=== PATIENT | female | born 1975 | race Caucasian/White ===

== ENCOUNTER 2021-03-14 17:03 | Emergency (ER) | payer OTHER, SELFPAY ==
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
[2021-03-14 17:20] VITALS: BP 140/70; PULSE 70; O2SAT 98; BMI 23.6
[2021-03-14 17:55] VITALS: BP 121/86; PULSE 68; O2SAT 99
[2021-03-14 18:56] LABS: MANUAL DIFF FLAG NO
[2021-03-14 18:57] LABS: Appearance Urine HAZY; Basophils Percent Auto 0.4 % (0-2); Color Urine YELLOW; Eosinophils Absolute Auto 0.4 X10*3/uL (0.0-0.4); Eosinophils Percent Auto 3.2 % (0-4); Glucose Urine UA NEG (NEG); Hematocrit 43.7 % (37.0-47.0); Hemoglobin 14.3 g/dl (12.0-16.0); Imm Gran Abs Auto 0.04 X10*3/uL (0.00-0.03); Imm Gran Pct Auto 0.4 % (0.0-0.4); Leukocyte Esterase Urine NEG (NEG); Lymphocytes Absolute Auto 3.3 X10*3/uL (1.2-4.9); Lymphocytes Percent Auto 29.9 % (20-40); Mean Corpuscular HGB Conc 32.7 g/dl (31.0-35.0); Mean Corpuscular Hemoglobin 28.9 pg (27.0-33.0); Mean Corpuscular Volume 88.5 fL (80.0-98.0); Mean Platelet Volume 10.6 fL (9.4-12.3); Monocytes Absolute Auto 0.7 X10*3/uL (0.1-1.2); Monocytes Percent Auto 6.3 % (2-11); Neutrophils Absolute Auto 6.5 x10*3/uL (2.0-8.3); Neutrophils Percent Auto 59.8 % (45-73); Nitrite Urine NEG (NEG); Platelet Count 257 X10*3/uL (160-400); Red Blood Count 4.94 X10*6/uL (4.20-5.50); Red Cell Distribution Width 13.6 % (11.0-16.0); UACC Culture Trigger NO; Urine Blood TRACE (NEG); Urine Ketones NEG (NEG); Urine Protein NEG (NEG-TRACE); White Blood Count 10.9 X10*3/uL (4.8-10.8)
[2021-03-14 19:02] LABS: Mucus Urine 1+ /LPF; Squamous Epithelial Cell Urine 2+ /LPF; Tyrosine Crystal Urine TRACE /LPF
[2021-03-14 19:03] LABS: Bacteria Urine TRACE /LPF; RBC Urine 0-2 /HPF (0); WBC Urine 0-2 /HPF (0-4)
[2021-03-14 19:16] LABS: Ethanol < 10 mg/dL
[2021-03-14 19:18] LABS: COVID-19 Test Negative (Negative)
[2021-03-14 19:19] LABS: Alanine Aminotransferase 23 U/L (0-31); Albumin Level 4.1 g/dL (3.5-5.0); Alkaline Phosphatase 79 U/L (39-117); Anion Gap 11 (12-20); Aspartate Amino Transferase 17 U/L (5-31); Bilirubin Total 0.3 mg/dL (0.0-1.0); Blood Urea Nitrogen 9 mg/dL (9-16); Calcium 9.6 mg/dL (8.4-10.2); Carbon Dioxide 28 mmol/L (22-29); Chloride 105 mmol/L (96-108); Creatinine Clr Calc Pharmacy 84.2; Estimated Glomerular Filt Rate > 60; Glucose Random 79 mg/dL (60-115); Sodium 140 mmol/L (135-145); Total Protein 6.4 g/dL (6.5-8.0)
[2021-03-14 19:31] LABS: Amphetamine Screen Urine Not Detected (Not Detect); Barbiturates, Urine Not Detected (Not Detect); Benzodiazepines Screen Urine Not Detected (Not Detect); Cannabinoid Screen Urine Not Detected (Not Detect); Cocaine Screen Urine POSITIVE (Not Detect); Fentanyl, urine POSITIVE (Not Detect); Opiate Screen Urine Not Detected (Not Detect); Phencyclidine Screen Urine Not Detected (Not Detect)
[2021-03-14 19:46] VITALS: PULSE 56; O2SAT 95
[2021-03-14 20:18] VITALS: BP 121/77; PULSE 70; RESP 20; TEMP 36.9; O2SAT 96
--- NOTE | 2021-03-14 20:31 | PC.NURSE ---
pt escorted to the behavioral health POD, in her bed while cleaning it staff found 5 tiny pill like containers containing an unknown substance. GIOVANI Beckford made aware. Security made aware and given the containers
--- NOTE | 2021-03-14 20:34 | PC.NURSE ---
pt arrived to the pod very drowsy and wabbly when standing, pt taken to the bathroom with jaya and myself while security stood outside the bathroom door in the pod. pt was checked for any further substances due to staff found crushed pills in her bed in the main 6 burrows. pt is in pod clothing, a small white substance noted to her rectal area, pt denies drugs on her person. during this note security and the provider came to the pt room [facility] and had a conversation with provider, security and myself and pt did states that she had 6 blue containers with crack inside. pt is very upset punched the wall, crying and wants to go home. pt is being monitored for her safety, vitals and neuro status, pt repeated over and over she is not depressed but wants to due to she doesnt like the people in the world.
--- NOTE | 2021-03-14 21:11 | PC.NURSE ---
pt mom Chato called and stated that she received a call from the pt and the pt was crying hard to understand but wants her dogs to be cared for tonight. pt made aware and pt stated that no information is to go to her mom. no hipa violation made and pt will call her mom back when she is ready.
--- NOTE | 2021-03-14 21:28 | PC.NURSE ---
late entry, during the pt mash filter cloth changer pt braclets and 2 rings removed by the pt and placed in a plastic bag and placed in her locked locker for pt safety. pt is still crying to go home.
--- NOTE | 2021-03-14 21:38 | PC.NURSE ---
added to belonging checklist 2 rings, 5 braclets and 1 necklace used as a braclet removed and placed in locker 7 with her other belongins.. this was done with security present.
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
[2021-03-14 22:00] VITALS: RESP 20
--- NOTE | 2021-03-14 22:05 | PC.NURSE ---
saranya contact numbers [employer] [phone] cell [phone] work number [phone]
[2021-03-14] MEDS: LORazepam 1 MG TABLET PO (22:12)
--- NOTE | 2021-03-14 22:14 | PC.NURSE ---
pt is back in bed laying down, tearful, treated with ativan po. pt is starting to settle down and the crying has lessened.
--- NOTE | 2021-03-14 22:24 | PC.NURSE ---
late entry when security was present earlier the room was gone thru with security for pt safety.
--- NOTE | 2021-03-14 22:32 | PC.NURSE ---
care team present and attempted to talk with pt about her substance abuse issues but pt was sleepin. ,
--- NOTE | 2021-03-14 22:35 | HO.SUDE ---
CARE team attempted to meet with pt to complete SUDE. She was sleeping and did not rouse to verbal stimuli. Unable to be assessed at this time.
--- NOTE | 2021-03-14 23:40 | PC.NURSE ---
Narcan 4 mg scheduled for 1804 order was not documented, not clear from the report whether it was given and not documented or not given, patient is currently sleeping, no distress observed/reported.
[2021-03-15 00:53] VITALS: BP 97/56; PULSE 51; RESP 17; TEMP 36.9; O2SAT 97
--- NOTE | 2021-03-15 05:35 | PC.NURSE ---
Patient slept through the night, no distress observed/reported, behavior calm, quiet, and appropriate, mood depressed affect flat at this time, med rec completed pending providers approval, patient was screened by PACO, disposition is section 12 inpatient bed search, VSS, will continue to monitor.
[2021-03-15 10:01] VITALS: BP 112/73; PULSE 61; RESP 16; TEMP 36.6; O2SAT 97
[2021-03-15] MEDS: LORazepam 1 MG TABLET PO (10:38)
--- NOTE | 2021-03-15 13:00 | PC.NURSE ---
report given to Jessica Farias at [facility]. Pt transported to [facility]. Pt aware of plan. Pt alert and oriented, vss. denies pain. Lunch given prior to leaving ED POD. Pt's mother present on discharge.
== END 2021-03-15 13:00 | disposition home or self-care (01) ==
PROVIDERS: Physician Assistant; Emergency Provider Internal Medicine; PCP Internal Medicine
DX: T40.1X1A Poisoning by heroin, accidental (unintentional), initial encounter (principal); Y92.9 Unspecified place or not applicable; F32.A Depression, unspecified; R45.851 Suicidal ideations; Z20.822 Contact with and (suspected) exposure to COVID-19
CPT/HCPCS: 36415; 80053; 80307; 81001; 82077; 85025; 87635; 99285

== ENCOUNTER → 2021-04-28 13:58 | Outpatient (BNVA) | payer OTHER, SELFPAY | PROVIDERS: PCP Internal Medicine; Visit Provider Nurse Practitioner Family | DX: M47.816 Spondylosis without myelopathy or radiculopathy, lumbar region (principal); M54.6 Pain in thoracic spine; M79.18 Myalgia, other site | CPT/HCPCS: 99202 ==

== ENCOUNTER 2022-01-28 11:48 | Outpatient (REF) | payer OTHER, SELFPAY ==
--- NOTE | ~2022-01-28 | XR_ITS ---
EXAMINATION: XR THORACOLUMBAR SPINE CLINICAL INFORMATION: Pain in thoracic spine COMPARISON: Same-day radiographs of the lumbar spine. TECHNIQUE: 3 views of the thoracic spine FINDINGS: There is mild curve of the thoracic spine, convex left. No fracture or subluxation. No intrinsic bony abnormality. There is multilevel narrowing of the disc spaces in the mid to lower thoracic spine with small anterior marginal osteophytes. The surrounding prevertebral soft tissues are within normal limits. XR/XR thoracic spine 2V IMPRESSION: 1. Mild curve of the thoracic spine, convex left. 2. Mild degenerative changes.
--- NOTE | ~2022-01-28 | XR_ITS ---
EXAMINATION: XR LUMBOSACRAL SPINE CLINICAL INFORMATION: Spondylosis without myelopathy radiculopathy COMPARISON: Same-day thoracic spine radiographs TECHNIQUE: Three views of the lumbosacral spine. FINDINGS: There are 5 nonrib-bearing lumbar-type vertebral bodies. The height of the vertebral bodies is well-maintained. There is no disc space narrowing. There is no spondylolisthesis or spondylolysis. There is moderate degenerative facet joint disease at L5-S1. The sacroiliac joints are symmetric. XR/XR lumbar spine 2-3V IMPRESSION: Moderate degenerative facet joint disease L5-S1.
== END 2022-01-28 11:49 | disposition home or self-care (01) ==
LOC: HO.XRAY 11:48
PROVIDERS: Visit Provider Nurse Practitioner Family
DX: M47.816 Spondylosis without myelopathy or radiculopathy, lumbar region (principal); M54.6 Pain in thoracic spine
CPT/HCPCS: 72070; 72100

== ENCOUNTER 2022-03-01 16:39 | Outpatient (REF) | payer OTHER, SELFPAY ==
--- NOTE | ~2022-03-01 | MR_ITS ---
EXAMINATION: MR THORACIC SPINE WITHOUT CONTRAST CLINICAL INFORMATION: Pain in the thoracic spine. COMPARISON: Thoracic spine radiographs from 01/28/2022. TECHNIQUE: MRI of the thoracic spine was obtained using routine sequences without contrast. FINDINGS: Mildly motion degraded exam. Limited evaluation of the cervical spine on nondiagnostic teaching supervisor imaging is notable for mild to moderate multilevel degenerative spondyloarthropathy. No demonstrated cervical spinal canal stenosis. Normal anatomic alignment of the thoracic spine. Partially decreased marrow signal throughout. Scattered lipid rich hemangiomas within the vertebral bodies from T6-L1. No suspicious marrow edema. The vertebral body heights are maintained. Mild degenerative disc disease from T3-T11. No demonstrated spinal cord signal abnormalities. The conus medullaris terminates at the level of L1-L2. No significant abnormalities of the paraspinal musculature. Limited evaluation of the intrathoracic structures without significant abnormalities. The descending thoracic aorta is of normal contour and caliber. AXIAL SPINAL LEVELS: Mild multilevel posterior disc herniations, most notably at T2-T3, T4-T5, and from T9-L1. There is mild multilevel facet joint arthropathy. There is no neural foraminal stenosis. There is no spinal canal stenosis. 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 No overt thoracic spinal canal stenosis or nerve root compression. There appears to be partially decreased marrow signal throughout. This is a nonspecific appearance that could be seen in the setting of a variety of metabolic derangement and/or lymphoproliferative/hematopoietic disorders (including anemia).
== END 2022-03-01 16:40 | disposition home or self-care (01) ==
LOC: HO.MRI 16:39
PROVIDERS: Visit Provider Nurse Practitioner Family
DX: M54.6 Pain in thoracic spine (principal); M41.9 Scoliosis, unspecified; M47.816 Spondylosis without myelopathy or radiculopathy, lumbar region
CPT/HCPCS: 72146

== ENCOUNTER → 2022-05-05 14:54 | Outpatient (BNVA) | payer OTHER, SELFPAY | PROVIDERS: PCP Internal Medicine; Visit Provider Nurse Practitioner Family | DX: M41.9 Scoliosis, unspecified (principal); M79.18 Myalgia, other site; M54.6 Pain in thoracic spine; M47.814 Spondylosis without myelopathy or radiculopathy, thoracic region | CPT/HCPCS: 99212 ==

== ENCOUNTER 2022-06-22 06:03 | Outpatient (REF) | payer OTHER, SELFPAY | END 2022-06-22 06:04 | disposition home or self-care (01) | LOC: CF 06:03 | PROVIDERS: Visit Provider Internal Medicine | DX: Z13.89 Encounter for screening for other disorder (principal) | CPT/HCPCS: J2795; Q9965 ==

== ENCOUNTER 2022-12-18 11:58 | Emergency (ER) | payer OTHER, SELFPAY ==
[2022-12-18 12:11] VITALS: BP 116/68; PULSE 63; RESP 16; TEMP 36.9; O2SAT 94; BMI 27.6
--- NOTE | 2022-12-18 12:34 | ED_ITS ---
HPI - General Adult General Chief complaint: General Medical Stated complaint: Sore throat, N[facility]V [facility] EMS Time Seen by Provider: 12/18/22 12:15 Source: patient, EMS and RN notes reviewed (From [facility]) Mode of arrival: EMS Limitations: no limitations History of Present Illness HPI narrative: patient is a 47-year-old female who presents to emergency department via EMS coming from [facility]. She has been experiencing a sore throat for the past week and also endorses bilateral ear pain and nausea. Today she had 2 episodes of vomiting. Denies fevers, chills, neck pain, headache, chest pain, shortness of breath, abdominal pain, genitourinary symptoms, possibility of . Related Data Home Medications Medication Instructions Recorded Confirmed escitalopram oxalate 5 mg tablet 1 tab PO DAILY 03/15/21 04/28/21 gabapentin 600 mg tablet 1 tab PO TID 03/15/21 04/28/21 methadone 10 mg/mL oral concentrate 5 mg PO DAILY 04/28/21 04/28/21 Previous Rx's Medication Instructions Recorded penicillin V potassium 500 mg 500 mg PO BID #20 tabs 12/18/22 tablet Allergies Allergy/AdvReac Type Severity Reaction Status Date / Time No Known Allergies Allergy Verified 05/05/22 15:00 Review of Systems Review of Systems: Yes all other systems are reviewed and are negative PMFSH Past Medical History Attestation statement: The following information was validated with the patient. Source: old records reviewed Social History Social History (Updated 05/05/22 @ 15:10 by Veronica Garnett) Alcohol intake: never Smoked in Last 30 Days: Yes Use of substances other than those prescribed or required for medical reasons: Yes Substance Use Type: Crack/Cocaine Substance Use Frequency: Occasionally Last Used Substance: Weeks (ago) Advance Directives: No Advance Directives Information Provided: No Patient : No Physical Exam ED Vital Signs: Vital Signs - 24 hr 12/18/22 12:11 Temperature 98.5 F Pulse Rate 63 Respiratory Rate 16 Blood Pressure 116/68 Pulse Oximetry 94 Oxygen Delivery Method Room Air BMI result Body Mass Index 27.6 Appearance: Alert.?Oriented to person, place and time. No acute distress.?Normal affect. Eyes: Pupils equal, round and reactive to light.? ENT: Pharynx Erythematous without tonsillar hypertrophy, white exudates present bilaterally. Uvula midline. No trismus. No drooling.?? TM normal bilaterally. Neck: Normal inspection.? Neck supple.?? No cervical lymphadenopathy CVS: Heart sounds normal. Normal heart rate and rhythm.? Pulses normal.?? Respiratory: No respiratory distress.? Lung sounds clear to auscultation bilaterally?? Abdomen: Soft and non-tender. Normoactive bowel sounds. Skin: Skin warm and dry.? Normal skin color.? Extremities: No lower extremity edema.? Neuro: Moves all extremities spontaneously. Sensation intact bilaterally. Ambulates with normal steady gait. Course Reevaluation(s) Reevaluation #1: Strep a positive, most likely etiology for symptoms. Urinalysis with concern for urogenital contamination, she is without symptoms, I do not suspect UTI at this time. COVID- 19 and influenza testing are negative. Stable for dis charge back to [facility] Medications Administered Discontinued Medications Generic Name Dose Route Start Last Admin Trade Name Freq PRN Reason Stop Dose Admin Ibuprofen 600 mg 12/18/22 12:31 12/18/22 12:36 Ibuprofen 600 Mg Tablet PO 12/18/22 12:32 600 mg ONCE ONE Administration Ondansetron HCl 4 mg 12/18/22 12:31 12/18/22 12:37 Ondansetron Odt 4 Mg Tab.Rapdis TRANSLINGU 12/18/22 12:32 4 mg ONCE ONE Administration Medical Decision Making Medical Decision Making [facility] Narrative: patient is a 47-year-old female who presents emergency department via EMS for evaluation of upper respiratory symptoms. Physical examination is consistent with pharyngitis, likely bacterial in nature. No evidence of acute otitis media. no evidence of peritonsillar or retropharyngeal abscess plan to obtain testing for strep a, influenza/COVID - 19. Will trial Zofran for nausea and ibuprofen for discomfort. Abdominal examination is benign, I have a low suspicion for hepatic/biliary etiology, pancreatitis, bowel obstruction, diverticulitis, appendicitis, urinary tract infection, pyelonephritis. Suspect symptoms likely to be secondary to strep infection Differential Diagnosis Differential Diagnoses: The differential diagnosis associated with the presentation includes ( as noted above) Lab Data [facility] Lab Attestation statement: I reviewed the patient's lab results. ( see course narrative for further detail) Labs: Lab Results 09/17/23 09/17/23 Range/Units 13:36 13:45 Urine Color Yellow Urine Appearance Cloudy Urine pH 6.0 (5.0-9.0) Ur Specific [place] 1.015 (1.005-1.025) Urine Protein Negative (Neg-Trace) mg/dL Urine Glucose (UA) Negative (Negative) mg/dL Urine Ketones Negative (Negative) mg/dL Urine Blood Negative (Negative) Urine Nitrite Negative (Negative) Ur Leukocyte Esterase Large (3+) H (Negative) Urine RBC 0-2 (0-2) /HPF Urine WBC >50 H (0-5) /HPF Ur Squamous Epith Cells >20 (0-2) /HPF Urine Bacteria 4+ (None Seen) Hyaline Casts 3-5 (0-2) /LPF Urine Test NEGATIVE (NEGATIVE) Influenza Type A (PCR) NEGATIVE (Negative) Influenza Type B (PCR) NEGATIVE (Negative) RSV RNA Qual (PCR) NEGATIVE (Negative) SARS-CoV-2 RNA (RT-PCR) NEGATIVE (Negative) S. pyogenes GrpA PROMISE Positive A (Negative) Independent Historian Clinical information obtained from an independent historian. History obtained from or confirmed by: EMS ( as per H PI) External Record Review External record reviewed: Outpatient record Tests considered The following testing was considered but not selected: considered CBC, CMP, lipase, see narrative above, serum labs were deferred Prescription Management I considered prescription management with: Antibiotic Discharge Plan Discharge Clinical Impression: Acute streptococcal pharyngitis Patient Disposition: Xfer Psychiatric [facility] Transfer Details: Ynes Instructions: Strep Throat (ED) Prescriptions: New penicillin V potassium 500 mg tablet 500 mg PO BID Qty: 20 0RF No Action gabapentin 600 mg tablet 1 tab PO TID escitalopram oxalate 5 mg tablet 1 tab PO DAILY methadone 10 mg/mL concentrate 5 mg PO DAILY
--- OUTSIDE RECORDS SUMMARY | 2022-12-18 12:34 | XMS_ITS | Continuity of Care Document ---
Author Name Unknown Organization [facility] ter Address [address] [place] [id number] Care Team Providers Care Eligibility Specialist Name Role Phone Porfirio-Hernando MICHEL, Angi Primary Care Physicia n [place] [facility] [place]): [place] - 12/16/[address] [id number]- Discharge Disposition: Transfer to [facility] Attending Physician: Milena Lobo MD Admitting Physician: Vesta Alonso MD Referring Physician: Not on Staff, Referring MD Allergies, Adverse Reactions, Alerts No Known Medication Allergies Immunizations Given and Recorded Vaccine Date Status Refusal Reason tetanus/diphtheria/pertussis, acel(Tdap) 09/03/22 Given SARS-CoV-2 (COVID-19) Ad26 vaccine 09/23/20 Record ed diphtheria/tetanus/pertussis, acel(DTaP) 09/12/08 Recorded Medications albuterol CFC free 90 mcg/inh inhalation aerosol 180 mcg, 2, puffs, Inhalation, Every 4 hours, PRN, Refills 0, Maintenance, 06/21/21 10:00:00 EDT, Inhaler Start Date: 06/21/21 Status: Ordered FLUoxetine 40 mg oral capsule 1 capsule = 40 mg, By Mouth, Daily, # 30 capsule, 0 Refills, Maintenance, 12/08/22 17:11:00 EDT, Capsule, Partial fill upon patient request if the prescription is for a schedule II opioid drug. Start Date: 12/08/22 Status: Ordered gabapentin 300 mg oral capsule 600 mg, Capsule, By Mouth, 12/16/22 15:00:00 EDT Start Date: 12/16/22 Stop Date: 12/16/22 Status: Completed gabapentin 600 mg oral tablet 1 tablet = 600 mg, By Mouth, 3 times a day, # 270 tablet, 0 Refills, Maintenance, 12/08/22 17:11:00EDT, Tablet, Partial fill upon patient request if the prescription is for a schedule II opioid drug. Start Date: 12/08/22 Status: Ordered hydrOXYzine pamoate 50 mg oral capsule 1 capsule = 50 mg, By Mouth, 3 times a day, PRN as needed for anxiety, 0 Refills, Maintenance, 12/08/22 17:11:00 EDT, Partial fill upon patient request if the prescription is for a schedule II opioiddrug. Start Date: 12/08/22 Status: Ordered Melatonin 3 mg oral tablet 1 tablet = 3 mg, By Mouth, Daily at bedtime, PRN for insomnia, # 60 tablet, 0 Refills, Maintenance,12/08/22 17:11:00 EDT, Tablet, Partial fill upon patient request if the prescription is for a schedule II opioid drug. Start Date: 12/08/22 Status: Ordered Methadone = 125 mg, By Mouth, Daily, 0 Refills, Maintenance, 12/11/22 9:36:00 EDT, Tablet, Partial fill upon patient request if the prescription is for a schedule II opioid drug. Start Date: 12/11/22 Status: Ordered Nitrofurantoin Capsule 100 mg, 1, capsule, By Mouth, 2 times a day, Maintenance, Contraindicated when CrCL less than 30 mL/min, 12/16/22 9:13:00 EDT Start Date: 12/16/22 Stop Date: 12/17/22 Status: Ordered Problem List Condition Confirmation Course Effective Dates Status H ealt Status Informant Anxiety and depression Confirmed Active Polysubstance abuse Confirmed Active Results Orders for Microbiology Reports Name Date Throat Culture Grp A Strep (Culture Thro at Grp A Strep) 12/13/22 Urine Culture (URINE CULTURE) 12/11/22 Microbiology Reports TEST:Group A Strep Culture STATUS:Auth (Verified) BODY SITE: SOURCE:THROAT COLLECTED DATE/TIME:12/14/22 12:20 AM Group A Strep Culture SPECIMEN DESCRIPTION : THROAT SWAB SPECIAL REQUESTS : NONE CULTURE : NO GROUP A BETA HEMOLYTIC STREPTOCOCCI ISOLATED REPORT STATUS : FINAL 12/16/2022 TEST:Urine Culture STATUS:Auth (Verified) BODY SITE: SOURCE:URINE COLLECTED DATE/TIME:12/11/22 9:00 AM Urine Culture SPECIMEN DESCRIPTION : URINE SPECIAL REQUESTS : NONE CULTURE : >100,000 COL/ML ENTEROCOCCUS FAECALIS This isolate was identified using Maldi-TOF system These AST results were performed on the Vitek 2 ID and AST system REPORT STATUS : FINAL 12/14/2022 ORGANISM >100,000 COL/ML ENTEROCOCCUS FAECALIS This isolate was identified using Maldi-TOF system These AST results were performed on the Vitek 2 ID and AST system METHOD MIN. INHIB. CONC. (MCG/ML) AMPICILLIN SUSCEPTIBLE CIPROFLOXACIN SUSCEPTIBLE NITROFURANTOIN SUSCEPTIBLE LEVOFLOXACIN SUSCEPTIBLE VANCOMYCIN SUSCEPTIBLE GENTAMICIN SYNERGY SUSCEPTIBLE STREPTOMYCIN SYNERGY SUSCEPTIBLE TETRACYCLINE SUSCEPTIBLE Radiology Reports * Exam Date Time Procedure Performing Provider Status 12/08/22 11:28 AM Chest 2 Views Frontal and Lat Cliff Urrutia (Verified) Notes: (Chest 2 Views Frontal and Lat) Reason For Exam: Shortness of Breath, Fever;Other: RESULT: Chest 2 Views Frontal and Lat Chest 2 Views Frontal and Lat Reason: Other:; Shortness of Breath, Fever; Clinical Question(s): Pneumonia COMPARISON: 10/11/2020 FINDINGS: No acute cardiopulmonary process IMPRESSION: No acute abnormality. WSN: [id number] Ordering Physician: Stanley Jarvis Dictated By: Stanley Obrien MD Dictated Date/Time: 12/08/22 11:32 a Reviewed By: Stanley Obrien MD Signed By: Stanley Obrien MD Signed Date/Time: 12/08/22 11:32 am Transcribed By: COLIN Transcribed Date/Time: 12/08/22 11:31 am * Exam Date Time Procedure Performing Provider Status 12/08/22 7:[address] Head/Brain W/O Contrast Colette Pinto (Verified) Notes: (CT Head/Brain W/O Contrast) Reason For Exam: Trauma RESULT: CT Head/Brain W/O Contrast CT Head/Brain W/O Contrast INDICATION: Hx of Present Illness: patient was found on side of the road by bystander asleep. PD showed up and patient began to have 30 second episode of ? Tonic seizure was clenched nonresponsive. Postictal for ems, increased mentation throughout transport.; Reason: Trauma; Clinical Question(s): Hematoma; Order Comment: TECHNIQUE: Noncontrast head CT using axial technique and reconstructed in axial and coronal planes.Iterative reconstruction techniques are used to optimize dose and image quality. CTDIvol Head: 47.60 mGy, DLP Head: 773 mGy*cm. COMPARISON: 06/08/2014 FINDINGS: Computer Operator view findings, lines and tubes: None. BRAIN AND EXTRA-AXIAL SPACES: No parenchymal hemorrhage, midline shift, or mass effect. Abdalla-white matter differentiation is wellpreserved. No acute infarct. Ventricles, sulci, and basilar cisterns are normal. No white matter lesions. No subarachnoid hemorrhage. No subdural or epidural collection. CALVARIUM, SKULL BASE, AND SOFT TISSUES: No fractures or suspicious bony lesions. The paranasal sinuses and mastoid air cells are clear. Visualized orbits and globes are intact. The extracranial soft tissues are unremarkable. IMPRESSION: No acute intracranial pathology. WSN: [id number] Ordering Physician: Stanley Jarvis Dictated By: Corbin Hassan MD Dictated Date/Time: 12/08/22 7:58 am Reviewed By: Corbin Hassan MD Signed By: Corbin Hassan MD Signed Date/Time: 12/08/22 7:58 am Transcribed By: COLIN Transcribed Date/Time: 12/08/22 7:56 am Vital Signs Most recent to oldest [Reference Range]: 1 2 3 Oxygen Saturation [94-100 %] 95 % (12/16/22 11:49 AM) 96 % (12/16/22 8:54 AM) 99 % (12/16/22 7:00 AM) Pulse Rate [55-90 bpm] 78 bpm (12/16/22 11:49 AM) 61 bpm (12/16/22 8:54 AM) 55 bpm (12/16/22 7:00 AM) Blood Pressure [90-138/55-84 mm Hg] 115/73mm Hg (12/16/22 11:49 AM) 120/74mm Hg (12/16/22 8:54 AM) 96/38mm Hg (12/16/22 7:00 AM) Respiratory Rate [16-30 br/min] 18 br/min (12/16/22 2:13 PM) 17 br/min (12/16/22 11:49 AM) 18 br/min (12/16/22 8:54 AM) Temperature [96.8-100.4 DegF] 98.1 DegF (12/16/22 2:00 PM) 99.7 DegF (12/16/22 11:49 AM) 98.8 DegF (12/16/22 8:54 AM) Mode of Delivery (Oxygen) Room air (12/16/22 11:49 AM) Room air (12/16/22 8:54 AM) Room air (12/16/22 7:00 AM) Blood pressure sites Arm, left (12/16/22 11:49 AM) Arm, left (12/16/22 8:54 AM) Arm, right (12/16/22 7:00 AM) Temperature Route Oral (12/16/22 2:00 PM) Oral (12/16/22 11:49 AM) Oral (12/16/22 8:54 AM) Social History Social History Type Response Smoking Status 10 or more cigarette s (1/2 pack or more)/day in last 30 days entered on: 10/18/22 Sex History and physical note * Alisa Echeverria DO: PERFORM, MODIFY, MODIFY, MODIFY Event Display: History and Physical Hospital Authored Date: [id number] Patient: ??AGNES, SERENA ? Age:??47 Years?Sex:??Female?:??1975?? Chief Complaint/Reason for Consultation patient was found on side of the road by bystander asleep. ??PD showed up and patient began to have30 second episode of ? tonic seizure was clenched nonresponsive. ??Postictal for ems, increased mentation throughout transport. History of Present Illness This is a 47-year-old female with past medical history including polysubstance abuse??occluding opiates and cocaine,??depression,??and anxiety,??who currently presents to the hospital??after she was noted??to have??tonic-clonic seizure??activity??lasting about 30 seconds.?? The patient does not recall??any of the events surrounding??this episode.?? She was subsequently noted to have second??seizure like??episode??lasting about 30 seconds with jaw and face clenching??after she arrived to the ED.?? She denies any prior history of??seizures or seizure disorder.?? In the ED, she was noted to havestable vital signs.?? Lab work obtained on her showed a white count of 9.1 with a normal hemoglobinand normal platelet count.?? Other labs were notable for slightly low potassium of 3.2, with a chloride of 108, and BUN of 8 with a creatinine of 1.1.?? The patient was noted to have an alk phos of 90, AST of 52, ALT of 29, and total bili of 0.3.?? Lactate was 3 with a subsequent of 1.?? CK was 1598.?? TSH was normal.?? Urine tox screen is pending.?? She did undergo a head CT in the ED that showed no acute abnormality.?? She also had a chest x-ray done that was unremarkable.?? She is now admitted for further management. Review of Systems A complete review of systems was obtained and noted to be negative except as stated above in the HPI. Objective ? Vital Signs?? Temperature: 97.4 DegF (12/09/22 00:22:00) Temperature Route: Temporal (12/09/22 00:22:00) Pulse Rate: 71 bpm (12/09/22 00:22:00) Respiratory Rate: 20 br/min (12/09/22 00:22:00) Systolic Blood Pressure: 123 mm Hg (12/09/22 00:22:00) Diastolic Blood Pressure: 65 mm Hg (12/09/22 00:22:00) Blood pressure sites: Arm, right (12/09/22 00:22:00) Mean Arterial Pressure: 84 mm Hg (12/09/22 00:22:00) Pulse Pressure: 58 mm Hg (12/09/22 00:22:00) Oxygen Saturation: 100 % (12/09/22 00:22:00) Mode of Delivery (Oxygen): Room air (12/09/22 00:22:00) Early Warning Score: 2 (12/09/22 00:22:49) ? Physical Exam General: Alert, slightly unkempt, in no acute cardiopulmonary distress. Mental Status: Oriented to person, place and time. Normal affect. Head: Normocephalic. Eyes: Pupils are equal, round and reactive to light. Extraocular muscles intact. Ear, Nose and Throat: Oropharynx clear, mucous membranes moist. Ears and nose without masses, lesions or deformities. Trachea midline. Neck: Supple, Full range of motion. Respiratory: Clear to auscultation and percussion. No wheezing, rales or rhonchi. Cardiovascular: Heart sounds normal. Regular rate and rhythm, no murmurs, rubs or gallops. Gastrointestinal: Abdomen soft, non-tender, non-distended. Normal bowel sounds. No pulsatile mass. No hepatosplenomegaly. Neurologic: Cranial nerves II-XII grossly intact. No focal neurological deficits. Moves all extremities spontaneously. Sensation intact bilaterally. Skin: No rashes or lesions. No petechiae or purpura. No edema. Musculoskeletal: No cyanosis or clubbing. No gross deformities. Normal range of motion. Assessment/Plan This is a 47-year-old female with past medical history including??polysubstance abuse, who??presented to the hospital earlier today??after she was noted to have??tonic-clonic seizure-like activity. ??She had another episode??while she was here in the ED. ?? Seizure-like activity ??(R56.9) Polysubstance abuse This patient will be admitted to an inpatient medical bed.?? She presents with seizure-like activity and denies any prior history of seizures.?? CT of the head did not show any acute abnormality.?? She was loaded with 1000 mg of Keppra in the ED.?? We will keep her on seizure precautions.?? Most likely her seizure is due to her underlying drug use.?? She was evaluated by neurology and currently no need for EEG or MRI of the brain.?? We will use Ativan if needed for any further seizure activity,and can reach out to neurology again if she does have any recurrent seizures. ?? Hypokalemia.?? Patient noted to have potassium level will supplement and follow labs in the morning. ?? Anxiety and depression. Patient reportedly on fluoxetine which we will continue. ?? CODE STATUS.?? Patient is a full code. ?? DVT prophylaxis.?? We will encourage early mobilization. ?? Patient seen on December 08, 2022. Total time spent with patient and in coordination of care: including reviewing the chart/medical records, speaking with the patient, formulating and discussing the treatment plan, and documenting thefindings and encounter:?? 70 + min ? Histories Allergies Allergies ?(Active and Proposed Allergies Only) No Known Medication Allergies? (Severity: Unknown severity, Onset: Unknown) ? Past Medical History/Problem List Active Problems??(2) Anxiety and depression Polysubstance abuse ? Past Surgical History Patient denies ? Social History She states that she lives with her [id number] currently. Alcohol Details:??Use: pt denies. Substance Abuse Details:??Use: pt denies??recent use but has a history of heroin??and cocaine use. Tobacco Details:??Use: 1 pack a day on average and began as a teenager ?? Family Medical History Mother and father both in their 50s,??patient is unsure??of cause but thinks it was due tocancer. Medications Home Medications??(patient unsure of her medications,??but based on??external med??fill history, she is??likely on the following medications) Albuterol (albuterol CFC free 90 mcg/inh inhalation aerosol)?2?puff(s)?Inhalation?Every4 hours?as needed?Wheezing/Shortness of Breath Fluoxetine (FLUoxetine 40 mg oral capsule)?1?capsule?40?Milligram?By Mouth?Daily Gabapentin (gabapentin 600 mg oral tablet)?1?tab(s)?600?Milligram?By Mouth?3 times a day HydrOXYzine (hydrOXYzine pamoate 50 mg oral capsule)?1?capsule?50?Milligram?By Mouth?3 times a day?as needed?as needed for anxiety Melatonin (Melatonin 3 mg oral tablet)?1?tab(s)?3?Milligram?By Mouth?Daily at bedtime?as needed?for insomnia Flovent 110??mcg??1 puff twice a day ? Results Recent Labs BLOOD COUNT & DIFF WBC 9.1 k/mm3 ()?? 12/08/2022 07:30 RBC 4.40 m/mm3 ()?? 12/08/2022 07:30 Hgb 12.4 Gm/dL ()?? 12/08/2022 07:30 Hct 38.8 % ()?? 12/08/2022 07:30 MCV 88.2 femtoliters ()?? 12/08/2022 07:30 MCH 28.2 pg ()?? 12/08/2022 07:30 MCHC 32.0 g/dL (Low)?? 12/08/2022 07:30 Platelet Count 281 k/mm3 ()?? 12/08/2022 07:30 RDW-SD 48.3 femtoliters (High)?? 12/08/2022 07:30 MPV 10.4 femtoliters ()?? 12/08/2022 07:30 Nucleated RBC (Automated) 0.0 #/100 WBC'S ()?? 12/08/2022 07:30 Abs. NRBC 0.0 k/mm3 ()?? 12/08/2022 07:30 Abs. Neut 5.4 k/mm3 ()?? 12/08/2022 07:30 Abs. Lymph 2.7 k/mm3 ()?? 12/08/2022 07:30 Abs. Linn 0.7 k/mm3 ()?? 12/08/2022 07:30 Abs. Eo 0.2 k/mm3 ()?? 12/08/2022 07:30 Abs. Baso 0.0 k/mm3 ()?? 12/08/2022 07:30 Neut % 59.4 % ()?? 12/08/2022 07:30 Lymph % 29.6 % ()?? 12/08/2022 07:30 Linn % 8.1 % ()?? 12/08/2022 07:30 Eos % 2.1 % ()?? 12/08/2022 07:30 Baso % 0.4 % ()?? 12/08/2022 07:30 Imm Gran 0.4 % ()?? 12/08/2022 07:30 Abs. Imm Gran 0.0 k/mm3 ()?? 12/08/2022 07:30 ?? CARDIAC CK, Total 1593 units/L (High)?? 12/08/2022 07:29 ?? CHEM GENERAL Sodium 145 mmol/L ()?? 12/08/2022 07:29 Potassium 3.2 mmol/L (Low)?? 12/08/2022 07:29 Chloride 108 mmol/L (High)?? 12/08/2022 07:29 Bicarbonate Level 22 mmol/L ()?? 12/08/2022 07:29 Anion Gap 15 ()?? 12/08/2022 07:29 Glucose Level 107 mg/dL (High)?? 12/08/2022 07:29 Glucose, POC 114 mg/dL (High)?? 12/08/2022 21:16 BUN 8 mg/dL ()?? 12/08/2022 07:29 Creatinine-Blood 1.1 mg/dL (High)?? 12/08/2022 07:29 Estimated GFR Creatinine 67 ML/MIN/1.73 M2 ()?? 12/08/2022 07:29 Calcium 9.5 mg/dL ()?? 12/08/2022 07:29 Calcium, Ionized pH Corrected 1.22 mmol/L ()?? 12/08/2022 07:29 Magnesium 2.0 mg/dL ()?? 12/08/2022 07:29 Protein, Total 6.7 Gm/dL ()?? 12/08/2022 07:29 Albumin 4.3 Gm/dL ()?? 12/08/2022 07:29 AG Ratio 1.8 ()?? 12/08/2022 07:29 Alkaline Phosphatase 90 units/L ()?? 12/08/2022 07:29 AST (SGOT) 52 units/L (High)?? 12/08/2022 07:29 ALT (SGPT) 29 units/L ()?? 12/08/2022 07:29 Bilirubin, Total 0.3 mg/dL ()?? 12/08/2022 07:29 Lactate 1.0 mmol/L ()?? 12/08/2022 10:30 ?? ENDOCRINE/TUMOR MARKER TSH 2.16 uIU/mL ()?? 12/08/2022 07:29 Serum Qual NEGATIVE mIU/mL ()?? 12/08/2022 07:29 ?? MISC. CHEMISTRY Ammonia, Venous 33 ??mole/L ()?? 12/08/2022 07:55 ?? TOXICOLOGY/TDM Salicylate Level <0.3 mg/dL (Low)?? 12/08/2022 07:29 Acetaminophen Level <5 mg/L (Low)?? 12/08/2022 07:29 ?? VIROLOGY COVID-19 by RT-PCR NEGATIVE ()?? 12/08/2022 07:57 ? Imaging(s) ?Other Image ?EKG showing normal sinus rhythm with a heart rate of 68. Some nonspecific T wave abnormality noted. QTc prolonged at 489 ms. ?(12/08/2022 07:[address] Head/Brain W/O Contrast) IMPRESSION: ?? No acute intracranial pathology. [1] ?? (12/08/2022 11:28 EDT Chest 2 Views Frontal and Lat) ?? IMPRESSION: ?? No acute abnormality. [2] [1]??CT Head/Brain W/O Contrast; Sonya MICHEL, Corbin Schwab 12/08/2022 07:43 EDT [2]??Chest 2 Views Frontal and Lat; Camille MICHEL, Stanley Richardson 12/08/2022 11:28 EDT EKG study * Event Display: EKG Authored Date: * Event Display: ECG 12-Lead Authored Date: Please click on pdf link to open report * Event Display: ECG 12-Lead Authored Date: Ventricular Rate: 68 BPM Atrial Rate: 68 BPM P-R Interval: 130 ms QRS Duration: 100 ms Q-T Interval: 460 ms QTC Calculation(Bazett): 489 ms P [place]: 58 degrees R [place]: 16 degrees T [place]: -10 degrees Normal sinus rhythm Nonspecific T wave abnormality Prolonged QT Abnormal ECG When compared with ECG of 03-SEP-2022 19:40, Vent. rate has increased BY 24 BPM QT has lengthened Confirmed by VIDYA HAHN ([id number]) on 12/08/2022 8:25:52 AM Adger: VIDYA HAHN [facility] Progress note * Robin Davidson RN: PERFORM, SIGN, VERIFY Event Display: Progress Note Hospital Authored Date: [id number] Patient: SERENA ALARCON Age: 47 years Sex: Female : 1975 Associated Diagnoses: None Author: Robin Davidson RN Findings Alert and oriented x4. complaints of throat pain. White noted on back of throat. Redness as well. Supportive care. Strep negative. From s3 as [facility] could not accept patient. Received a call from [facility]. [facility] able to accept patient. Transport booked. * Alanna Chaves RN: PERFORM, SIGN, VERIFY Event Display: Progress Note Hospital Authored Date: [id number] Patient: SERENA ALARCON Age: 47 years Sex: Female : 1975 Associated Diagnoses: None Author: Alanna Chaves RN Findings Problem Related to Alteration in Psychosocial : Alteration in Psychosocial Function/new 12/16/2022 3:00 EDT Alteration in Psychosocial Related to Acute Opioid Withdrawal, Suicidal Goals & Outcomes, Psychosocial Psychosocial support will be provided to Pt/S.O. as needed, Pt will state importance of adhering to medication regime, Pt/caregiver will be offered appropriate resources & support, Pt/caregiver will express feelings/needs/fears /concerns, Pt/caregiver will maintain/obtain psychological stability, Pt will be free from anxiety, Pt successfully withdraws with minimal side effects, Pt will be free from withdrawal symptoms, Pt will detoxify from substance, Pt will develop plan for sobriety after discharge, Pt will show motivation for recovery, Pt will be monitored for suicidal ideation, Pt will manage stressors w/out self injury Interventions, Psychosocial Offer support; discuss coping strategies, Provide info on community resources for education, support BH Goals/Interventions, Psychosocial Yes Psychosocial, Problem Start 12/08/2022 10:07 Reviewed Plan with, Psychosocial Patient Patient Progression, Psychosocial Pt progressing according to plan . Narrative/Incidental Pt alert oriented x3, anxious. Medicated with schedulle and prn. Sore throat still bad, clorasepticthroat spray for inflammation given. Medicated with Ibuprofen x2 during the night. Advertising Inserter at bed side. Crisis called about pt's bed at [facility] ( [facility]) tomorrow 12/16/2022 at 9:30 AM. See biophysical for full assessment. We will continue to monitor.. * Akanksha Way DO: PERFORM, MODIFY, MODIFY Event Display: Progress Note Hospital Authored Date: [id number] Patient: ??SERENA ALARCON ? Age:??47 Years?Sex:??Female?:??1975?? Subjective Overnight, no acute events. Patient did not sleep well. This morning, she is resting. Reports sore throat is still bothersome. Denies other symptoms of runny nose, cough, or shortness of breath. ?? Wanted letter faxed to court saying that she was hospitalized. Throat swab prelim negative, pt is now medically cleared, let psych team know to reinitiate bed search. ?? Review of Systems Please refer to HPI as all other systems negative unless specified. Objective Vital Signs?? Temperature: 97.1 DegF (12/15/22 12:00:00) Temperature Route: Temporal (12/15/22 12:00:00) Pulse Rate: 58 bpm (12/15/22 12:00:00) Respiratory Rate: 18 br/min (12/15/22 14:36:00) Systolic Blood Pressure: 106 mm Hg (12/15/22 12:00:00) Diastolic Blood Pressure: 58 mm Hg (12/15/22 12:00:00) Blood pressure sites: Arm, left (12/15/22 12:00:00) Mean Arterial Pressure: 70 mm Hg (12/15/22 03:11:00) Pulse Pressure: 48 mm Hg (12/15/22 12:00:00) Oxygen Saturation: 99 % (12/15/22 12:00:00) Mode of Delivery (Oxygen): Room air (12/15/22 12:00:00) Early Warning Score: 2 (12/15/22 14:37:09) ?? Physical Exam Constitutional: Alert, not in acute distress. Head EENT: Improving erythema in posterior pharynx. Extraocular muscle movement intact.??Moist mucous membranes.?? Neck: Supple. No JVD. Cardiovascular: Regular rate and rhythm. Respiratory: Clear to auscultation. No wheezing or crackles. No use of accessory muscles. Gastrointestinal: Abdomen soft, mild diffuse tenderness, non-distended. Normal bowel sounds. Extremities: No lower extremity pitting??edema. Neurologic: AAOx3, Speech normal. No focal neurological deficits. Skin: No rash. Psychiatric: Normal mood and affect. Results Recent Labs BLOOD COUNT & DIFF WBC 6.1 k/mm3 ()?? 12/14/2022 05:38 RBC 4.40 m/mm3 ()?? 12/14/2022 05:38 Hgb 12.6 Gm/dL ()?? 12/14/2022 05:38 Hct 39.4 % ()?? 12/14/2022 05:38 MCV 89.5 femtoliters ()?? 12/14/2022 05:38 MCH 28.6 pg ()?? 12/14/2022 05:38 MCHC 32.0 g/dL (Low)?? 12/14/2022 05:38 Platelet Count 192 k/mm3 ()?? 12/14/2022 05:38 RDW-SD 47.6 femtoliters (High)?? 12/14/2022 05:38 MPV 11.4 femtoliters ()?? 12/14/2022 05:38 Nucleated RBC (Automated) 0.0 #/100 WBC'S ()?? 12/14/2022 05:38 Abs. NRBC 0.0 k/mm3 ()?? 12/14/2022 05:38 ?? CHEM GENERAL Sodium 141 mmol/L ()?? 12/14/2022 05:40 Potassium 4.3 mmol/L ()?? 12/14/2022 05:40 Chloride 104 mmol/L ()?? 12/14/2022 05:40 Bicarbonate Level 27 mmol/L ()?? 12/14/2022 05:40 Anion Gap 10 ()?? 12/14/2022 05:40 Glucose Level 97 mg/dL ()?? 12/14/2022 05:40 BUN 4 mg/dL (Low)?? 12/14/2022 05:40 Creatinine-Blood 0.8 mg/dL ()?? 12/14/2022 05:40 Estimated GFR Creatinine 89 ML/MIN/1.73 M2 ()?? 12/14/2022 05:40 Calcium 8.3 mg/dL (Low)?? 12/14/2022 05:40 Magnesium 2.2 mg/dL ()?? 12/14/2022 05:40 Assessment/Plan Serena Alarcon is a 47 year old female with PMH of polysubstance use and anxiety who presented to ED on 12/08 for seizure like activity. Evaluated by Neurology, thought to be in setting of substance abuse. Patient was medically cleared for discharge on 12/11, however then disclosed she had attempted overdose with drugs which was what prompted her presentation. She was evaluated by Psychiatry, and requires inpatient psychiatric hospitalization. Course complicated by diarrhea and fever, and she wasfound to be positive for Cryptosporidium. She tested negative for HIV. She was also found to have En terococcus UTI, and is on a course of antibiotics. Patient is medically cleared as of 12/15, and is undergoing psych bed search. ?? Enterococcus UTI Given patient's fevers, UA was obtained UA with pyuria, culture growing >100K Enterococcus Pt reporting increased frequency, denies dysuria. Suprapubic tenderness on exam. ?? Plan: -Start nitrofurantoin for 3 days 12/14-12/16 ?? Cryptosporidium gastroenteritis Pt was febrile with multiple episodes of diarrhea. Denies cough, productive sputum, or urinary symptoms. Denies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
--- OUTSIDE RECORDS SUMMARY | 2022-12-18 12:34 | XMS_ITS | Continuity of Care Document ---
Author Name Unknown Organization [facility] Address [address] [place] [id number]- Care Team Providers Care Systems Programmer Analyst Name Role Phone Not on Staff, PCP Primary Care Physician Unavail able Encounter [facility] Date(s): 08/07/21 - 08/07/[address] [address]- Discharge Disposition: A-D/C [facility], [facility], or Jail Fac Attending Physician: Pia Taylor MD Admitting Physician: Pia Taylor MD Referring Physician: Not on Staff, Referring MD Allergies, Adverse Reactions, Alerts No Known Medication Allergies Immunizations Given and Recorded Vaccine Date Status Refusal Reason SARS-CoV-2 (COVID-19) Ad26 vaccine 09/23/20 Record ed diphtheria/tetanus/pertussis, acel(DTaP) 09/12/08 Recorded Medications albuterol CFC free 90 mcg/inh inhalation aerosol 180 mcg, 2, puffs, Inhalation, Every 4 hours, PRN, Refills 0, Maintenance, 06/21/21 10:00:00 EDT, Inhaler Start Date: 06/21/21 Status: Ordered docusate sodium 100 mg oral capsule 100 mg, 1, capsule, By Mouth, 2 times a day, Refills 0, Maintenance, 06/21/21 10:00:00 EDT, Partialfill upon patient request if the prescription is for a schedule II opioid drug. Start Date: 06/21/21 Status: Ordered FLUoxetine 20 mg oral capsule 40 mg, 2, capsule, By Mouth, Daily, Refills 0, Maintenance, 06/21/21 10:00:00 EDT, Partial fill upon patient request if the prescription is for a schedule II opioid drug. Start Date: 06/21/21 Status: Ordered gabapentin 300 mg oral capsule 600 mg, 2, capsule, By Mouth, 2 times a day, take at 7am and 12pm, Refills 0, Maintenance, 06/21/2209:02:00 EDT, Partial fill upon patient request if the prescription is for a schedule II opioid drug. Start Date: 06/21/21 Status: Ordered gabapentin 400 mg oral capsule 800 mg, 2, capsule, By Mouth, 2 times a day, 4p and 9pm, Refills 0, Maintenance, 06/21/21 10:01:00 EDT, Partial fill upon patient request if the prescription is for a schedule II opioid drug. Start Date: 06/21/21 Status: Ordered hydrOXYzine pamoate 25 mg oral capsule 2 capsule = 50 mg, By Mouth, Every 6 hours, PRN Nausea, 0 Refills, Maintenance, 06/21/21 10:00:00 EDT, Capsule, Partial fill upon patient request if the prescription is for a schedule II opioid drug. Start Date: 06/21/21 Status: Ordered Methadone = 75 mg, By Mouth, Daily, 0 Refills, Maintenance, 06/21/21 10:00:00 EDT, Tablet, Partial fill upon patient request if the prescription is for a schedule II opioid drug. Start Date: 06/21/21 Status: Ordered Nicotine = 21 mg, Topically, Daily, 0 Refills, Maintenance, 06/21/21 10:01:00 EDT, Patch, Partial fill upon patient request if the prescription is for a schedule II opioid drug. Start Date: 06/21/21 Status: Ordered Vital Signs Most recent to oldest [Reference Range]: 1 2 Height 175 cm (08/07/21 4:33 AM) Weight 75 kg (08/07/21: AM) Oxygen Saturation [94-100 %] 99 % (08/07/21:23 AM) 100 % (08/07/21:33 AM) Pulse Rate [55-90 bpm] 80 bpm (08/07/21:23 AM) 62 bpm (08/07/21:33 AM) Blood Pressure [90-138/55-84 mm Hg] 112/ 70mm Hg (08/07/21 4:33 AM) Systolic Blood Pressure [90-138 mm Hg] 8 1 mm Hg *L* (08/07/21: AM) Respiratory Rate [16-30 br/min] 17 br/mi n (08/07/21 7:23 AM) 18 br/min (08/07/21 4:33 AM) Temperature [96.8-100.4 DegF] 98.2 DegF (08/07/21 4:33 AM) Mode of Delivery (Oxygen) Room air (08/07/21 7:23 AM) Room air (08/07/21 4:33 AM) Blood pressure sites Arm, left (08/07/21 4:33 AM) Temperature Route Oral (08/07/21 4:33 AM) Dry Weight 75 kg (08/07/21 4:33 AM) Social History Social History Type Response Smoking Status 10 or more cigarette s (1/2 pack or more)/day in last 30 days entered on: 02/08/20 Sex
--- OUTSIDE RECORDS SUMMARY | 2022-12-18 12:34 | XMS_ITS | Continuity of Care Document ---
Author Name Unknown Organization [facility] ter Address [address] [place] [id number]- Care Team Providers Care Sand Conditioner Name Role Phone Porfirio-Hernando MICHEL, Angi Primary Care Physicia n Encounter [facility] Date(s): 07/24/21 - 07/26/[address] [address]- Discharge Disposition: Transfer to Psych Facility Attending Physician: Mark España MD Admitting Physician: Mark España MD Referring Physician: Not on Staff, Referring [...] gabapentin 400 mg oral capsule 800 mg, Capsule, By Mouth, 07/26/21 9:00:00 EDT Start Date: 07/26/21 Stop Date: 07/26/21 Status: Completed gabapentin 400 mg oral capsule 800 mg, [...] opioid drug. Start Date: 06/21/21 Status: Ordered methadone 10 mg oral tablet 75 mg, Tablet, By Mouth, dose confirmed with clinic, 07/26/21 9:00:00 EDT Start Date: 07/26/21 Stop Date: 07/26/21 Status: Completed Nicotine = 21 mg, Topically, Daily, 0 Refills, Maintenance, 06/21/21 10:01:00 EDT, Patch, Partial fill upon patient request if the prescription is for a schedule II opioid drug. Start Date: 06/21/21 Status: Ordered Vital Signs Most recent to oldest [Reference Range]: 1 2 3 Oxygen Saturation [94-100 %] 100 % (07/26/21 7:00 AM) 98 % (07/25/21 7:59 PM) 100 % (07/25/21 9:36 AM) Pulse Rate [55-90 bpm] 84 bpm (07/26/21 7:00 AM) 65 bpm (07/25/21 7:59 PM) 60 bpm (07/25/21 9:36 AM) Blood Pressure [90-138/55-84 mm Hg] 123/79mm Hg (07/26/21 7:00 AM) 120/73mm Hg (07/25/21 7:59 PM) 100/50mm Hg (07/25/21 9:36 AM) Respiratory Rate [16-30 br/min] 16 br/min (07/26/21 8:00 AM) 16 br/min (07/26/21 7:59 AM) 16 br/min (07/26/21 7:00 AM) Temperature [96.8-100.4 DegF] 98.5 DegF (07/26/21 7:00 AM) 98.3 DegF (07/25/21 7:59 PM) 98.1 DegF (07/25/21 9:36 AM) Mode of Delivery (Oxygen) Room air (07/26/21 7:00 AM) Room air (07/25/21 7:59 PM) Room air (07/25/21 9:36 AM) Blood pressure sites Arm, right (07/26/21 7:00 AM) Arm, right (07/25/21 7:59 PM) Arm, right (07/25/21 12:58 AM) Temperature Route Oral (07/26/21 7:00 AM) Oral (07/25/21 7:59 PM) Oral (07/25/21 9:36 AM) Social History Social History Type Response Smoking Status 10 or more cigarette s (1/2 pack or more)/day in last 30 days entered on: 02/08/20 Sex
[2022-12-18] MEDS: Ibuprofen 600 MG TABLET PO (12:36)
[2022-12-18] MEDS: Ondansetron ODT 4 MG TAB.RAPDIS TRANSLINGU (12:37)
[2022-12-18 13:50] LABS: Appearance Urine Cloudy; Color Urine Yellow; Glucose Urine UA Negative (Negative); Leukocyte Esterase Urine Large (3+) (Negative); Nitrite Urine Negative (Negative); Specific Gravity - Urine 1.015 (1.005-1.025); UMIC TRIGGER UACC YES; Urine Blood Negative (Negative); Urine Ketones Negative (Negative); Urine Protein Negative (Neg-Trace)
[2022-12-18 13:55] LABS: Bacteria Urine 4+ (None Seen); RBC Urine 0-2 /HPF (0-2); Squamous Epithelial Cell Urine >20 /HPF (0-2); UACC Culture Trigger YES; UPreg QC Valid YES; Urine Pregnancy NEGATIVE (NEGATIVE); WBC Urine >50 /HPF (0-5)
[2022-12-18 14:03] LABS: IDNOW Serial# BCCEAD1C; Strep A Nucleic Acid Positive (Negative)
[2022-12-18 14:37] LABS: Influenza A PCR NEGATIVE (Negative); Influenza B PCR NEGATIVE (Negative); Resp Syncy Virus RNA Qual PCR NEGATIVE (Negative); SARS COV2 PCR INHOUSE NEGATIVE (Negative)
[2022-12-18] MEDS: Acetaminophen 325 MG TABLET 975 MG PO (15:17)
[2022-12-18 15:29] VITALS: BP 103/65; PULSE 60; RESP 16; O2SAT 96
== END 2022-12-18 15:32 ==
PROVIDERS: Nurse Practitioner Family; Emergency Provider Student in an Organized Health Care Education/Training Program
DX: J02.0 Streptococcal pharyngitis (principal); Z20.822 Contact with and (suspected) exposure to COVID-19; Z20.828 Contact with and (suspected) exposure to other viral communicable diseases; Z79.899 Other long term (current) drug therapy
CPT/HCPCS: 0241U; 81001; 81025; 87086; 87651; 99285

== ENCOUNTER 2023-06-09 10:16 | Outpatient (AMB) | payer OTHER, SELFPAY ==
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
[2023-06-09 10:21] VITALS: BP 122/72; PULSE 71; RESP 16; O2SAT 96; BMI 31.9
== END 2023-06-09 10:43 | disposition home or self-care (01) ==
PROVIDERS: Visit Provider Nurse Practitioner Family
DX: M47.816 Spondylosis without myelopathy or radiculopathy, lumbar region (principal); M47.812 Spondylosis without myelopathy or radiculopathy, cervical region; M79.18 Myalgia, other site; M41.9 Scoliosis, unspecified; M47.814 Spondylosis without myelopathy or radiculopathy, thoracic region
CPT/HCPCS: 99214

== ENCOUNTER 2023-06-09 10:16 | Outpatient (REF) | payer OTHER, SELFPAY ==
--- NOTE | ~2023-06-09 | XR_ITS ---
EXAMINATION: XR CERVICAL SPINE CLINICAL INFORMATION: Spondylosis without myelopathy or radiculopathy, cervical region. COMPARISON: None available. TECHNIQUE: 4 views of the cervical spine were obtained. FINDINGS: There is straightening of the cervical spine. There is mild disc space narrowing at C4-C5 and C5-C6. Vertebral body heights are well-maintained. Some mild posterior osteophytes present at C4-C5. No prevertebral soft tissue swelling, fractures or subluxations seen. No bony destructive lesions. XR/XR cervical spine 3V IMPRESSION: Mild degenerative changes in the cervical spine as described above.
--- NOTE | ~2023-06-09 | XR_ITS ---
EXAMINATION: XR LUMBOSACRAL SPINE WITH OBLIQUES CLINICAL INFORMATION: Spondylosis without myelopathy or radiculopathy. COMPARISON: Lumbar spine 01/28/2022. TECHNIQUE: AP, both oblique, and lateral views of the lumbar spine. Lateral view of the lumbosacral junction. FINDINGS: Some minimal degenerative changes are present with some minimal narrowing at L4-L5. Again seen are some mild facet joint changes at L5-S1 bilaterally. Compared to the prior study, the disc space narrowing at L4-L5 is new. There are no fractures, subluxations or bony destructive lesions. XR/XR lumbar spine 6V w bending IMPRESSION: Minimal degenerative changes as described above.
== END 2023-06-09 10:17 | disposition home or self-care (01) ==
LOC: HO.XRAY 10:16
PROVIDERS: Visit Provider Nurse Practitioner Family
DX: M47.816 Spondylosis without myelopathy or radiculopathy, lumbar region (principal); M47.812 Spondylosis without myelopathy or radiculopathy, cervical region; M79.18 Myalgia, other site; M41.9 Scoliosis, unspecified; M47.814 Spondylosis without myelopathy or radiculopathy, thoracic region
CPT/HCPCS: 72040; 72114; 99212